=== PATIENT | male | born 1985 | race African-American/Black ===

== ENCOUNTER 2024-10-26 02:29 | Emergency (ER) | payer OTHER ==
[~2024-10-26] VITALS: Ht 180.3 cm; Wt 95.5 kg
[~2024-10-26 02:29] MED LIST: NOCURR
[2024-10-26] MEDS ORDERED: SULF1TAB42 PO (03:39)
[2024-10-26] MEDS ORDERED: IBUP-1492 PO (03:39)
[2024-10-26] MEDS: PERTUSS(ACELL),DIPH,TET/PF 0.5 ML SYRINGE [ADULT] IM. ONE (03:54)
[2024-10-26] MEDS: SULFAMETHOX/TRIMETH DS 800-160 MG/TABLET PO ONE (03:55)
[2024-10-26] MEDS: HYDROCODONE/ACETAMINOPHEN 5-325 MG TABLET PO ONE (03:55)
[2024-10-26 04:02] VITALS: BP 127/71; PULSE 69; RESP 20; TEMP 98.3; O2SAT 100
== END 2024-10-26 04:16 | disposition home or self-care (01) ==
LOC: EMS 02:30
DX: S91.331A Puncture wound without foreign body, right foot, initial encounter (principal); W45.0XXA Nail entering through skin, initial encounter; Y93.89 Activity, other specified; Y92.89 Other specified places as the place of occurrence of the external cause; Y99.8 Other external cause status
CPT/HCPCS: 90471; 90715; 99283